=== PATIENT | female | born 1985 | race Caucasian/White ===

== ENCOUNTER → 2024-02-29 11:46 | Outpatient (REF) | payer BC, SELFPAY | LOC: RAD 11:46 | PROVIDERS: ATTENDING PHYSICIAN Physician Assistant; FAMILY PHYSICIAN Family Medicine | DX: S09.92XA Unspecified injury of nose, initial encounter (principal); W19.XXXA Unspecified fall, initial encounter | CPT/HCPCS: 70160 ==